=== PATIENT | male | born 1980 | race American Indian/Alaskan Native ===

== ENCOUNTER 2018-11-28 07:40 | Emergency (ER) | payer BC ==
[2018-11-28 07:45] VITALS: BP 140/78
--- NOTE | 2018-11-28 08:35 | Emergency Department Report ---
ED Male HPI - General Chief complaint: Urogenital-Male Stated complaint: POSS STD Time Seen by Provider: 11/28/18 08:01 Source: patient Mode of arrival: Ambulatory Limitations: No Limitations - History of Present Illness Initial comments: 38-year-old male with no prior medical history presents for STD treatment stating that he is having penile discharge and pain with urination. Patient states he thinks he has a severe loss was treated. He denies testicular swelling, lesions, pain MD Complaint: penile discharge -: Gradual Location: penis Radiation: none Severity: moderate Quality: burning Consistency: constant Improves with: none Worsens with: urination denies: swelling, mass, blood in urine - Related Data Allergies Allergy/AdvReac Type Severity Reaction Status Date / Time No Known Allergies Allergy Unverified 11/28/18 07:45 ED Review of Systems ROS: Stated complaint: POSS STD Other details as noted in HPI Comment: All other systems reviewed and negative ED Past Medical Hx - Social History Smoking Status: Current Every Day Smoker Substance Use Type: Marijuana ED Physical Exam - General Limitations: No Limitations General appearance: alert, in no apparent distress - Head Head exam: Present: atraumatic, normocephalic - Eye Eye exam: Present: normal appearance - ENT ENT exam: Present: mucous membranes moist - Neck Neck exam: Present: normal inspection - Respiratory Respiratory exam: Present: normal lung sounds bilaterally. Absent: respiratory distress - Cardiovascular Cardiovascular Exam: Present: regular rate, normal rhythm. Absent: systolic murmur, diastolic murmur, rubs, gallop - GI/Abdominal GI/Abdominal exam: Present: soft, normal bowel sounds - Rectal Rectal exam: Present: deferred - Extremities Exam Extremities exam: Present: normal inspection - Back Exam Back exam: Present: normal inspection - Neurological Exam Neurological exam: Present: alert, oriented X3 - Psychiatric Psychiatric exam: Present: normal affect, normal mood - Skin Skin exam: Present: warm, dry, intact, normal color. Absent: rash ED Course Vital Signs 11/28/18 07:44 Temperature 98.4 F Pulse Rate 80 Respiratory 16 Rate Blood Pressure 140/78 O2 Sat by Pulse 100 Oximetry ED Medical Decision Making - Medical Decision Making 38-year-old male presents with STD exposure. ED course: urinalysis and gonorrhea and Chlamydia cultures obtained. Urinalysis positive for leukorrhea Patient received 250 mg of Rocephin, azithromycin 1 g, Flagyl 2 g. Discussed with patient possible STD due to exposure. Discussed with patient findings and treatment Discussed prophylaxis treatment patient is to abstain from sex 7-10 days as treatment. Discussed patient partner knowledge and treatment. Discussed the follow-up with the health department for further STD testing. Patient's alert and oriented times 3.Vital signs are normal patient is in no acute discharge. Patient will be discharged home with instructions. Critical care attestation.: If time is entered above; I have spent that time in minutes in the direct care of this critically ill patient, excluding procedure time. ED Disposition Clinical Impression: STD (sexually transmitted disease) Disposition: TO HOME OR SELFCARE Is pt being admited?: No Does the pt Need Aspirin: No Condition: Stable Instructions: Sexually Transmitted Diseases (ED), Safe Sex (ED) Additional Instructions: Make sure to follow up with the primary care physician as discussed. Take all your medications as you've been prescribed. If you have any worsening symptoms or develop new symptoms please return to ED immediately. Referrals: TERRENCE CORDOVA MD [Primary Care Provider] - 3-5 Days [facility] [Outside] - 3-5 Days [facility] [Outside] - 3-5 Days Forms: Work/School Release Form(ED) Time of Disposition: 09:20
[2018-11-28 08:48] LABS: Bilirubin,Urine NEG (Negative); Blood,Urine SM (Negative); Color,Urine Yellow (Yellow); Mucus,Urine FEW /HPF; Protein,Urine <15 mg/dL mg/dL (Negative); Urobilinogen,Urine < 2.0 mg/dL (<2.0)
[2018-11-28] MEDS ORDERED: ZITHROMAX PO ONE (08:51)
[2018-11-28] MEDS ORDERED: ROCEPHIN IM ONE (08:51)
[2018-11-28] MEDS ORDERED: XYLOCAINE 1% MPF 5 mL INFILTRATI ONE (08:52)
[2018-11-28] MEDS ORDERED: FLAGYL PO ONE (08:52)
== END 2018-11-28 09:20 | disposition home or self-care (01) ==
LOC: ED 07:40
DX: A64 Unspecified sexually transmitted disease (principal); F17.200 Nicotine dependence, unspecified, uncomplicated; F12.90 Cannabis use, unspecified, uncomplicated
CPT/HCPCS: 81001; 96372; 99283; J0696

== ENCOUNTER 2018-12-17 07:34 | Emergency (ER) | payer BC ==
[2018-12-17 07:39] VITALS: BP 116/63
[2018-12-17] MEDS ORDERED: NORCO 5/325 PO NR (09:09)
[2018-12-17] MEDS ORDERED: XYLOCAINE 1% 20 mL ONE (09:20)
[2018-12-17] MEDS ORDERED: XYLOCAINE 1% 20 mL INFILTRATI ONE (09:38)
--- NOTE | 2018-12-17 09:42 | Emergency Department Report ---
ED General Adult HPI - General Chief complaint: Skin/Abscess/Foreign Body Stated complaint: FACE PAIN Time Seen by Provider: 12/17/18 09:09 Source: patient Mode of arrival: Ambulatory Limitations: No Limitations - History of Present Illness Initial comments: Patient is a 38-year-old male who's had a small bump on the midface just right of the nose for approximately a year that is now swollen painful. There is some associated redness swelling. Patient believes he may have a small abscess. Tried to squeeze the abscess but nothing came out. Patient states this is been for 2 days. Patient denies any fevers chills nausea vomiting diarrhea at this time. Severity scale (0 -10): 7 Consistency: constant - Related Data Previous Rx's Medication Instructions Recorded Last Taken Type Clindamycin [Clindamycin CAP] 300 mg PO Q8H 7 Days cap 12/17/18 Unknown Rx HYDROcodone/APAP 5-325 [[place] 1 each PO Q4HR PRN #12 tablet 12/17/18 Unknown Rx 5/325] Ibuprofen [Motrin] 800 mg PO Q8HR PRN #20 tablet 12/17/18 Unknown Rx Allergies Allergy/AdvReac Type Severity Reaction Status Date / Time No Known Allergies Allergy Verified 12/17/18 07:37 ED Review of Systems ROS: Stated complaint: FACE PAIN Other details as noted in HPI Comment: All other systems reviewed and negative ED Past Medical Hx - Past Medical History Previous Medical History?: No - Surgical History Past Surgical History?: No - Social History Smoking Status: Never Smoker Substance Use Type: None - Medications Home Medications: Home Medications Medication Instructions Recorded Confirmed Last Taken Type Clindamycin [Clindamycin CAP] 300 mg PO Q8H 7 Days cap 12/17/18 Unknown Rx HYDROcodone/APAP 5-325 [[place] 1 each PO Q4HR PRN #12 tablet 12/17/18 Unknown Rx 5/325] Ibuprofen [Motrin] 800 mg PO Q8HR PRN #20 tablet 12/17/18 Unknown Rx ED Physical Exam - General Limitations: No Limitations General appearance: alert, in no apparent distress - Head Head exam: Present: atraumatic, normocephalic - Eye Eye exam: Present: normal appearance - ENT ENT exam: Present: mucous membranes moist - Neck Neck exam: Present: normal inspection - Respiratory Respiratory exam: Present: normal lung sounds bilaterally. Absent: respiratory distress - Cardiovascular Cardiovascular Exam: Present: regular rate, normal rhythm. Absent: systolic murmur, diastolic murmur, rubs, gallop - GI/Abdominal GI/Abdominal exam: Present: soft, normal bowel sounds - Rectal Rectal exam: Present: deferred - Extremities Exam Extremities exam: Present: normal inspection - Back Exam Back exam: Present: normal inspection - Neurological Exam Neurological exam: Present: alert, oriented X3 - Psychiatric Psychiatric exam: Present: normal affect, normal mood - Skin Skin exam: Present: warm, dry, intact, normal color, other (patient with the area of induration erythema and mild fluctuance just right of the bridge of the nose and medial to the eye.). Absent: rash ED Course Vital Signs 12/17/18 12/17/18 07:37 09:29 Temperature 97.7 F Pulse Rate 74 Respiratory 18 16 Rate Blood Pressure 116/63 O2 Sat by Pulse 100 Oximetry - I & D Face Type of Procedure: Complex Blade Size: 11 I & D Procedure: betadine prep, sterile drapes applied, sterile dressing applied, gauze wick placed Progress: Large amount of thick pus and sebaceous fluid was expressed. Quarter-inch packing was placed. Patient did have good anesthesia during the procedure. Critical care attestation.: If time is entered above; I have spent that time in minutes in the direct care of this critically ill patient, excluding procedure time. ED Disposition Clinical Impression: Facial abscess Disposition: DC-01 TO HOME OR SELFCARE Is pt being admited?: No Does the pt Need Aspirin: No Condition: Stable Instructions: Abscess (ED) Referrals: GERARDO TIDWELL MD [Primary Care Provider] - 3-5 Days Time of Disposition: 10:12
== END 2018-12-17 10:18 | disposition home or self-care (01) ==
LOC: ED 07:34
DX: L02.01 Cutaneous abscess of face (principal)
CPT/HCPCS: 99282

== ENCOUNTER 2019-08-12 08:51 | Emergency (ER) | payer BC ==
--- NOTE | 2019-08-12 10:03 | Emergency Department Report ---
ED Fall HPI - General Chief Complaint: Fall Stated Complaint: HAND WRIST/NECK/BACK PAIN Time Seen by Provider: 08/12/19 09:52 Source: patient Mode of arrival: Ambulatory Limitations: No Limitations - History of Present Illness Initial Comments: Patient is a 38-year-old male that presents emergency room with multiple complaints after a fall. Patient states he fell off his patio approximately 67 feet down. Patient states she landed on the back of his head, neck. Patient is complaining of neck pain, headache, thoracic back pain, lumbar back pain and anterior rib pain, bilateral hand and wrist pain. Patient states his pain is 10 out of 10. Patient states his pain is better with rest. Patient states his pain was worsening. Patient states his pain is worse with movement. She denies loss of consciousness. MD Complaint: fall -: Sudden Fall From: from height (distance) (6-7 feet) When Fall Occurred: # days [employer] (1) Fall Witnessed: yes, by family Place Fall Occurred: home Loss of Consciousness: none Prolonged Down Time?: no Symptoms Prior to Fall: none Location: head, neck, chest, back Location - Extremities: Left: Forearm, Hand, Right: Forearm, Hand Severity: severe Severity scale (0 -10): 10 Quality: sharp Context: tripped/slipped Associated Symptoms: headache, neck pain, chest paint. denies: numbness, weakness, shortness of breath, abdominal pain, hematuria, unable to walk, lightheaded, vertigo, confusion - Related Data Previous Rx's Medication Instructions Recorded Last Taken Type Clindamycin [Clindamycin CAP] 300 mg PO Q8H 7 Days cap 12/17/18 Unknown Rx HYDROcodone/APAP 5-325 [[place] 1 each PO Q4HR PRN #8 tablet 08/12/19 Unknown Rx 5-325 mg TAB] Ibuprofen [Motrin 800 MG tab] 800 mg PO Q8HR PRN #20 tablet 08/12/19 Unknown Rx Metaxalone [Skelaxin] 800 mg PO TID PRN #20 tablet 08/12/19 Unknown Rx Allergies Allergy/AdvReac Type Severity Reaction Status Date / Time No Known Allergies Allergy Verified 12/17/18 07:37 ED Review of Systems ROS: Stated complaint: HAND WRIST/NECK/BACK PAIN Other details as noted in HPI Constitutional: denies: chills, fever Eyes: denies: eye pain, eye discharge, vision change ENT: denies: ear pain, throat pain Respiratory: denies: cough, shortness of breath, wheezing Cardiovascular: denies: chest pain, palpitations Endocrine: no symptoms reported Gastrointestinal: denies: abdominal pain, nausea, diarrhea Genitourinary: denies: urgency, dysuria Musculoskeletal: back pain. denies: joint swelling, arthralgia Skin: denies: rash, lesions Neurological: headache. denies: weakness, paresthesias Psychiatric: denies: anxiety, depression Hematological/Lymphatic: denies: easy bleeding, easy bruising ED Past Medical Hx - Past Medical History Previous Medical History?: No - Surgical History Past Surgical History?: No - Family History Family history: no significant - Social History Smoking Status: Current Every Day Smoker Substance Use Type: None - Medications Home Medications: Home Medications Medication Instructions Recorded Confirmed Last Taken Type Clindamycin [Clindamycin CAP] 300 mg PO Q8H 7 Days cap 12/17/18 Unknown Rx HYDROcodone/APAP 5-325 [[place] 1 each PO Q4HR PRN #8 tablet 08/12/19 Unknown Rx 5-325 mg TAB] Ibuprofen [Motrin 800 MG tab] 800 mg PO Q8HR PRN #20 tablet 08/12/19 Unknown Rx Metaxalone [Skelaxin] 800 mg PO TID PRN #20 tablet 08/12/19 Unknown Rx ED Physical Exam - General Limitations: No Limitations General appearance: alert, in no apparent distress - Head Head exam: Present: atraumatic, normocephalic - Eye Eye exam: Present: normal appearance - ENT ENT exam: Present: mucous membranes moist - Neck Neck exam: Present: normal inspection, tenderness, full ROM. Absent: meningismus, lymphadenopathy, thyromegaly - Respiratory Respiratory exam: Present: normal lung sounds bilaterally, chest wall tenderness. Absent: respiratory distress, wheezes, rales - Cardiovascular Cardiovascular Exam: Present: regular rate, normal rhythm. Absent: systolic murmur, diastolic murmur, rubs, gallop - GI/Abdominal GI/Abdominal exam: Present: soft, normal bowel sounds. Absent: distended, tenderness, guarding - Rectal Rectal exam: Present: deferred - Extremities Exam Extremities exam: Present: normal inspection (except for abrasions to bilateral hands), full ROM, tenderness (over bilateral dorsal hand). Absent: normal capillary refill, pedal edema, joint swelling, calf tenderness - Back Exam Back exam: Present: normal inspection, full ROM, tenderness, muscle spasm, paraspinal tenderness, vertebral tenderness - Neurological Exam Neurological exam: Present: alert, oriented X3 - Psychiatric Psychiatric exam: Present: normal affect, normal mood - Skin Skin exam: Present: warm, dry, normal color, abrasion. Absent: rash ED Course Vital Signs 08/12/19 09:20 Temperature 98.2 F Pulse Rate 82 Respiratory 18 Rate Blood Pressure 125/72 [Right] O2 Sat by Pulse 100 Oximetry - Reevaluation(s) Reevaluation #1: I discussed all results with patient. I discussed plan of care outpatient. Patient agrees with plan of care. Patient stable for discharge. Patient will be discharged home. Patient given discharge instructions. Patient was understanding of discharge instructions. 08/12/19 14:17 ED Medical Decision Making - Radiology Data Radiology results: report reviewed, image reviewed interpreted by me: no Acute findings on all x-rays. All x-rays CT reports reviewed and no acute findings on CT scans. - Medical Decision Making Patient is a 38-year-old male that presents emergency room status post fall with complaints of neck pain, posterior head pain, thoracic spine pain, lumbar spine pain, bilateral hand pain, bilateral wrist pain, and anterior rib pain. Patient had multiple x-rays and CTs done. All CTs and x-rays were negative for acute findings. On wrist x-ray chronic scaphoid fracture noted and patient was referred to orthopedist. Patient stable for discharge. Patient discharged meds, muscle relaxers and anti-inflammatories. Patient stable for discharge - Differential Diagnosis fall, fracture, strain, sprain, contusion, abrasion. Critical care attestation.: If time is entered above; I have spent that time in minutes in the direct care of this critically ill patient, excluding procedure time. ED Disposition Clinical Impression: Neck pain, Lumbar back pain, Painful rib Fall Qualifiers: Encounter type: initial encounter Qualified Code(s): W19.XXXA - Unspecified fall, initial encounter Thoracic back pain Qualifiers: Chronicity: acute Back pain laterality: midline Qualified Code(s): M54.6 - Pain in thoracic spine Wrist pain Qualifiers: Laterality: bilateral Qualified Code(s): M25.531 - Pain in right wrist Hand pain Qualifiers: Laterality: bilateral Qualified Code(s): M79.641 - Pain in right hand Hand abrasion Qualifiers: Encounter type: initial encounter Laterality: unspecified laterality Qualified Code(s): S60.519A - Abrasion of unspecified hand, initial encounter Headache Qualifiers: Headache type: post-traumatic Headache chronicity pattern: acute headache Intractability: not intractable Qualified Code(s): G44.319 - Acute post- traumatic headache, not intractable Head injury Qualifiers: Encounter type: initial encounter Qualified Code(s): S09.90XA - Unspecified injury of head, initial encounter Hand contusion Qualifiers: Encounter type: initial encounter Laterality: unspecified laterality Qualified Code(s): S60.229A - Contusion of unspecified hand, initial encounter Acute neck sprain Qualifiers: Encounter type: initial encounter Qualified Code(s): S13.9XXA - Sprain of joints and ligaments of unspecified parts of neck, initial encounter Contusion of thoracic wall Qualifiers: Encounter type: initial encounter Contusion of thoracic wall detail: front wall of thorax Laterality: unspecified laterality Qualified Code(s): S20.219A - Contusion of unspecified front wall of thorax, initial encounter Disposition: DC-01 TO HOME OR SELFCARE Is pt being admited?: No Does the pt Need Aspirin: No Condition: Stable Instructions: Chest Pain (ED), Wrist Injury (ED), Costochondritis (ED), Low Back Strain (ED), Acute Low Back Pain (ED), Contusion in Adults (ED), Cervical Sprain (ED), Abrasion (ED), Back Pain (ED), Wrist Sprain (ED) Additional Instructions: Patient to follow up with primary care in 2-3 days. Patient follow up with orthopedist in 2-3 days. Patient to rest. Patient to increase water. Patient take meds as directed. Patient take Tylenol or ibuprofen when necessary for pain. Prescriptions: Ibuprofen [Motrin 800 MG tab] 800 mg PO Q8HR PRN #20 tablet PRN Reason: Pain HYDROcodone/APAP 5-325 [[place] 5-325 mg TAB] 1 each PO Q4HR PRN #8 tablet PRN Reason: Pain Metaxalone [Skelaxin] 800 mg PO TID PRN #20 tablet PRN Reason: Spasms Referrals: PRIMARY CARE, [Primary Care Provider] - 2-3 Days DAKOTA ALVARADO MD [Staff Physician] - 2-3 Days Time of Disposition: 14:01
--- NOTE | 2019-08-12 11:11 | Cat Scan Report ---
CT HEAD WITHOUT CONTRAST INDICATION / CLINICAL INFORMATION: fall. pain. Head injury TECHNIQUE: Axial imaging performed from the skull apex through the skull base without the use of cont rast. Sagittal and coronal reformatted images. All CT scans at this location are performed using CT dose reduction for ALARA by means of automated exposure control. COMPARISON: None available. FINDINGS: CEREBRAL PARENCHYMA: No significant abnormality. No acute territorial infarct. HEMORRHAGE: None. EXTRA-AXIAL SPACES: Normal in size and morphology for the patient's age. VENTRICULAR SYSTEM: Normal in size and morphology for the patient's age. MIDLINE SHIFT OR HERNIATION: None. CEREBELLUM / BRAINSTEM: No significant abnormality. CALVARIUM: No significant abnormality. ORBITS: Normal as visualized. PARANASAL SINUSES / MASTOID AIR CELLS: Subcentimeter polyp is suspected in the posterior left maxilla ry sinus. The remaining sinuses and mastoid air cells are well-aerated. SOFT TISSUES of HEAD: No significant abnormality. ADDITIONAL FINDINGS: None. IMPRESSION: No acute intracranial abnormality. Signer Name: Aubrey Hernandez Jr, MD Signed: 08/12/2019 11:06 AM Workstation Name: [id number]
--- NOTE | 2019-08-12 11:11 | Cat Scan Report ---
CT CERVICAL SPINE WITHOUT CONTRAST INDICATION: Fall, neck pain. TECHNIQUE: Axial CT images of the spine were obtained. Sagittal and coronal reformatted images were produced. Al l CT scans at this location are performed using CT dose reduction for ALARA by means of automated exp osure control. COMPARISON: None available. FINDINGS: ACUTE FRACTURE(S) OR SUBLUXATION: None. SPINAL DEGENERATIVE CHANGES: There is mild degenerative disc disease at C5-6 and C6-7 with mild disc height loss and endplate osteophyte formation that appears to result in mild canal stenosis at both o f those levels. PARASPINAL SOFT TISSUES: No soft tissue swelling or other acute abnormalities. ADDITIONAL FINDINGS: No significant additional findings. IMPRESSION: 1. No acute fracture or subluxation in the spine in neutral position. Signer Name: Conner Walker MD Signed: 08/12/2019 11:07 AM Workstation Name: [id number]
[2019-08-12] MEDS ORDERED: TORADOL IM ONE (12:22)
--- NOTE | 2019-08-12 13:04 | XRay Report ---
BILATERAL HANDS 6 VIEWS BILATERAL WRISTS 8 VIEWS INDICATION: fall. pain. COMPARISON: No relevant prior imaging study available. FINDINGS: No acute fracture or dislocation is seen at either hand. There is remodeling at the right little fing er metacarpal which is likely due to remote, healed fracture. There is a chronic ununited fracture at the left scaphoid waist with cystic changes in the scaphoid. No acute fracture is seen at either wrist. IMPRESSION: 1. No acute findings. 2. Chronic ununited left scaphoid fracture. THORACIC SPINE 2 VIEWS LUMBAR SPINE 2 VIEWS INDICATION: fall. pain. COMPARISON: No relevant prior imaging study available. FINDINGS: Thoracic and lumbar vertebral body height is maintained. No subluxation is seen. There are no signifi cant degenerative changes. SI joints are within normal limits. IMPRESSION: 1. No acute findings. RIB SERIES 4 VIEWS, BILATERAL INDICATION: fall. pain. COMPARISON: No relevant prior imaging study available. FINDINGS: On the included chest radiograph, no pulmonary contusion or hemopneumothorax is seen. No displaced rib fractures are seen bilaterally. IMPRESSION: 1. No acute findings. Signer Name: Minh Oakley MD Signed: 08/12/2019 1:00 PM Workstation Name: [id number]
[2019-08-12 23:08] VITALS: BP 131/73
== END 2019-08-12 14:10 | disposition home or self-care (01) ==
LOC: ED 08:51
DX: S13.9XXA Sprain of joints and ligaments of unspecified parts of neck, initial encounter (principal); S20.229A Contusion of unspecified back wall of thorax, initial encounter; S60.221A Contusion of right hand, initial encounter; S60.512A Abrasion of left hand, initial encounter; R51 Headache; R07.81 Pleurodynia; W13.0XXA Fall from, out of or through balcony, initial encounter; Y93.89 Activity, other specified; Y92.009 Unspecified place in unspecified non-institutional (private) residence as the place of occurrence of the external cause; Y99.8 Other external cause status
CPT/HCPCS: 70450; 71111; 72070; 72100; 72125; 73110; 73130; 96372; 99284; J1885